=== PATIENT | female | born 1985 | race Caucasian/White ===

== ENCOUNTER 2017-06-28 00:51 | Inpatient (IN) | payer BC ==
[2017-06-28] VITALS (29 sets, daily range): BP systolic 128–153; BP diastolic 61–94; PULSE 82–110; TEMP 97.6–98.6
[~2017-06-28] VITALS: Ht 152.4 cm; Wt 99.1 kg
[~2017-06-28 00:51] MED LIST: ASPIRIN 81M81 MG/TA2 PO; B6-FOLIC ACID1 CAP PO; FOLGARD RX 1 MG1 TAB PO; FOLGARD RX 2.21 TAB PO; LEVEMIR100 U/ML SQ; METHERGINE0.2 MG/TAB PO; MOTRIN 600600 MG/TAB PO; PERCOCET 325 MG1 TA2 PO; PRENATAL1 TA3 PO; PROGESTERONE50 MG/ML IM; PROMETRIUM200 MG PO
[2017-06-28 02:31] LABS: BASO % 0.3 % (0.0-2.0); EOS # 0.1 (0.0-0.7); EOS % 0.5 % (0-4.0); GRAN # 6.1 (1.4-6.5); HEMOGLOBIN 10.5 g/dl (12.5-16.0); LYMPH # 2.5 (1.2-3.4); LYMPH % 25.9 % (20.0-51.0); MEAN CELL VOLUME 85 fl (80.0-100.0); MEAN CORPUSCULAR HEMOGLOBIN 27 pg (27.0-31.0); MEAN CORPUSCULAR HGB CONC 31 g/dl (33.0-37.0); MEAN PLATELET VOLUME 10.4 fl (7.4-10.4); MONO # 0.8 (0.1-0.6); MONO % 8.4 % (1.7-9.3); PLATELET COUNT 256 K/mm3 (130-400); RED BLOOD COUNT 3.95 M/mm3 (4.10-5.30); REDCELL DISTRIBUTION WIDTH-CV 15.1 % (11.5-14.5)
[2017-06-28 02:32] LABS: HEMATOCRIT 33.4 % (37.0-47.0)
[2017-06-28 03:24] LABS: ALBUMIN 2.8 gm/dL (3.5-5.0); BILIRUBIN,TOTAL 0.4 mg/dL (0.0-1.0); CALCIUM 9.7 mg/dL (8.4-10.2); CREATININE, serum 0.47 mg/dL (0.52-1.25); POTASSIUM 3.9 mmol/L (3.4-5.0); TOTAL PROTEIN 6.1 gm/dL (6.4-8.2)
[2017-06-29 06:30] VITALS: BP 120/80; PULSE 80; TEMP 98.2
[2017-06-29 20:00] VITALS: BP 141/84; PULSE 97; TEMP 98.6
[2017-06-30] MEDS ORDERED: IBU800 M1 PO (08:59)
[2017-06-30] MEDS ORDERED: PERCOCET 325 MG1 TA2 PO (08:59)
[2017-06-30] MEDS ORDERED: PROCARDIA XL 6060 MG PO (08:59)
[2017-06-30 09:00] VITALS: BP 140/90; PULSE 88; TEMP 98.8
== END 2017-06-30 14:55 | disposition home or self-care (01) | DRG 775 ==
LOC: LDRO 00:51 → LDR 01:40 → OB 01:40
PROVIDERS: Student in an Organized Health Care Education/Training Program
PROC: 10E0XZZ Delivery of Products of Conception, External Approach (ICD-10-PCS; principal; 2017-06-28)
PROC: 0KQM0ZZ Repair Perineum Muscle, Open Approach (ICD-10-PCS; 2017-06-28)
DX: O99.284 Endocrine, nutritional and metabolic diseases complicating childbirth (principal); E72.12 Methylenetetrahydrofolate reductase deficiency; Z3A.38 38 weeks gestation of pregnancy; Z37.0 Single live birth; O70.1 Second degree perineal laceration during delivery; O13.4 Gestational [pregnancy-induced] hypertension without significant proteinuria, complicating childbirth
CPT/HCPCS: J2590; J2795; J7120

== ENCOUNTER 2020-10-19 03:44 | Inpatient (IN) | payer BC ==
[2020-10-19] VITALS (14 sets, daily range): BP systolic 131–173; BP diastolic 75–102; PULSE 78–99; TEMP 97.5–98.9
[~2020-10-19] VITALS: Ht 162.6 cm; Wt 97.3 kg
[~2020-10-19 03:44] MED LIST changes: +IBU800 M1 PO; +PROCARDIA XL 6060 MG PO
--- NOTE | 2020-10-19 03:50 | NUR ---
PT ARRIVES VIA WHEELCHAIR TO UNIT C/O CONTRACTIONS, WORSENING IN PAIN SINCE 0130. DENIES BREAKING OF WATER BUT STATES "I JUST FEEL LIKE MY WATER IS ABOUT TO BREAK." PT UNABLE TO BREATHE THROUGH CONTRACTIONS. PLACED ON EFM/TOCO. CATEGORY 1 STRIP. CONTRACTIONS FIRM AND PALPATED Q1.5-2MIN. INITIAL SVE AT 0400 PT IS AN ANTERIOR LIP WITH A BULGY BAG. 0401: PT BEGINS STATING "I FEEL LIKE I NEED TO PUSH." UPDATED AND STATES HE IS ON HIS WAY. INT PLACED TO RIGHT FA. LR INFUSING. PT ENCOURAGED AND COACHED TO DEEP BREATHE THROUGH THE PAIN UNTIL PHYSICIAN IS PRESENT. 0412: SROM WITH CLEAR FLUID NOTED, PT STATING "I HAVE TO PUSH", PT ENCOURAGED TO CONTINUE TO BREATH AND ENSURED THAT THE PHYSICIAN IS ALMOST PRESENT. 0412: ARRIVES AT BEDSIDE, PT BEGINS TO PUSH. 0419: OF VIABLE FEMALE . PLACED ON MATERNAL ABDOMEN. CARE ASSUMED BY YAS Marie RN. CORD CLAMPED X2 AND CUT BY FOB. 0423: OF PLACENTA. TRUE KNOT X1 FOUND UPON DELIVERY BY . PITOCIN INFUSING PER PROTOCOL. FUNDUS REMAINS FIRM AT UMBILICUS. LOCHIA WNL WITH NO MAJOR CLOTTING. BEGINS REPAIR OF 2ND DEGREE PERINEAL LACERATION. WILL CONTINUE RECOVERY PER PROTOCOL.
--- NOTE | 2020-10-19 07:20 | NUR ---
Assisted out of bed for first time post delivery. Steady gait noted. Denies any lightheadedness/dizziness/nausea. Able to spontaneously void. Darcie care/teaching provided. New gown, mesh underwear, darcie pad, ice pack provided. Transferred to 765 @ 1090.
[2020-10-19 07:28] LABS: BASO % 0.4 % (0.0-2.0); EOS % 0.4 % (0-4.0); GRAN # 7.8 (1.4-6.5); HEMATOCRIT 37.4 % (37.0-47.0); HEMOGLOBIN 11.8 g/dl (12.5-16.0); LYMPH # 2.1 (1.2-3.4); LYMPH % 19.7 % (20.0-51.0); MEAN CELL VOLUME 90 fl (80.0-100.0); MEAN CORPUSCULAR HEMOGLOBIN 28 pg (27.0-31.0); MEAN CORPUSCULAR HGB CONC 32 g/dl (33.0-37.0); MEAN PLATELET VOLUME 10.4 fl (7.4-10.4); MONO # 0.8 (0.1-0.6); PLATELET COUNT 243 K/mm3 (130-400); RED BLOOD COUNT 4.16 M/mm3 (4.10-5.30); REDCELL DISTRIBUTION WIDTH-CV 13.6 % (11.5-14.5)
--- NOTE | 2020-10-19 07:50 | NUR ---
Rates pain "5" of 10 in perineum. Requests stronger pain medication.
--- NOTE | 2020-10-19 08:55 | NUR ---
Switched to large BP cuff, but BP still mildly elevated. Will notify .
--- NOTE | 2020-10-19 09:00 | NUR ---
here for am rounds.
--- NOTE | 2020-10-19 09:11 | NUR ---
Initial visit; Patient thanked Trumpet Teacher for offering congratulations and God's blessings for the of her daughter. Trumpet Teacher thanked patient for choosing [facility].
[2020-10-19] MEDS ORDERED: VITAMIN B-6100 MG (23:05)
[2020-10-19] MEDS ORDERED: ASPIRIN 81M81 MG/TA2 PO (23:06)
[2020-10-19] MEDS ORDERED: CLARITIN 1010 MG/TAB PO (23:06)
--- NOTE | 2020-10-19 23:45 | NUR ---
PT'S BP 173/102. PER ADMINISTER 30MG PROCARDIA XL TONIGHT NOW, THEN CONTINUE WTIH QDAILY SCHEDULE IN THE MORNING. PT AGREEABLE TO POC.
[2020-10-20 04:30] VITALS: BP 161/91; PULSE 101; TEMP 97.9
[2020-10-20 07:45] VITALS: BP 132/80; PULSE 85; TEMP 98.1
--- NOTE | 2020-10-20 08:00 | NUR ---
Rests in bed, alert. Request pain medication. Tylenol 1000 mg given per request and as ordered.
--- NOTE | 2020-10-20 09:28 | NUR ---
Follow-up visit; Patient thanked Thimble Press Operator for stopping by again this morning and offering God's blessings.
--- NOTE | 2020-10-20 10:00 | NUR ---
Procardia 30 mg given late because of not having any up in the pyxis. Notified pharmacy at 0900.
--- NOTE | 2020-10-20 13:25 | NUR ---
Rests in bed, alert. Oxycodone 5 mg given per request and as ordered.
[2020-10-20 17:30] VITALS: BP 140/81; PULSE 85; TEMP 98.7
--- NOTE | 2020-10-20 17:37 | NUR ---
Rests in bed, alert. Ibuprofen 600 mg given as ordered.
[2020-10-20 20:10] VITALS: BP 145/82; PULSE 89; TEMP 98
[2020-10-21] MEDS ORDERED: ADALAT CC30 MG PO (08:27)
[2020-10-21] MEDS ORDERED: IBU600 MG PO (08:27)
[2020-10-21] MEDS ORDERED: ROXICODONE 55 MG/TAB PO (08:28)
[2020-10-21 08:30] VITALS: BP 138/91; PULSE 76; TEMP 98.1
== END 2020-10-21 14:00 | disposition home or self-care (01) | DRG 806 ==
LOC: LDRO 03:44 → OB 04:00 → LDR 04:00 → OB 07:30
PROVIDERS: Obstetrics & Gynecology; ADMIT Obstetrics & Gynecology
PROC: 10E0XZZ Delivery of Products of Conception, External Approach (ICD-10-PCS; principal; 2020-10-19)
PROC: 0KQM0ZZ Repair Perineum Muscle, Open Approach (ICD-10-PCS; 2020-10-19)
DX: O99.284 Endocrine, nutritional and metabolic diseases complicating childbirth (principal); E72.12 Methylenetetrahydrofolate reductase deficiency; Z37.0 Single live birth; O99.824 Streptococcus B carrier state complicating childbirth; O69.2XX0 Labor and delivery complicated by other cord entanglement, with compression, not applicable or unspecified; O70.1 Second degree perineal laceration during delivery; Z3A.37 37 weeks gestation of pregnancy
CPT/HCPCS: J2590; J7120

== ENCOUNTER 2023-03-06 07:51 | Day surgery (SDC) | payer OTHER ==
[~2023-03-06] VITALS: Ht 162.6 cm; Wt 89.5 kg
[~2023-03-06 07:51] MED LIST changes: +ADALAT CC30 MG PO; +CLARITIN 1010 MG/TAB PO; +IBU600 MG PO; +ROXICODONE 55 MG/TAB PO; +VITAMIN B-6100 MG
[2023-03-06 08:44] LABS: BASO % 0.6 % (0.0-2.0); EOS # 0.1 K/mm3 (0.0-0.7); EOS % 1.1 % (0.0-4.0); GRAN # 4.1 K/mm3 (1.4-6.5); GRAN % 63.8 % (42.2-75.2); HEMATOCRIT 38.9 % (37.0-47.0); HEMOGLOBIN 13.8 g/dl (12.5-16.0); LYMPH # 1.8 K/mm3 (1.2-3.4); MEAN CELL VOLUME 86 fl (80.0-100.0); MEAN CORPUSCULAR HEMOGLOBIN 30 pg (27-31); MEAN CORPUSCULAR HGB CONC 36 g/dl (33.0-37.0); MEAN PLATELET VOLUME 9.3 fl (7.4-10.4); MONO # 0.4 K/mm3 (0.1-0.6); MONO % 6.2 % (1.7-9.3); RED BLOOD COUNT 4.55 M/mm3 (4.10-5.30); REDCELL DISTRIBUTION WIDTH-CV 12.7 % (11.5-14.5)
[2023-03-06 09:11] LABS: PLATELET COUNT 259 K/mm3 (130-400)
[2023-03-06] MEDS ORDERED: NS 1,000 ML IV ONE (10:00)
[2023-03-06] MEDS ORDERED: Methylergonovine 0.2 MG/ML 1 ML AMPUL IV ONE (10:00)
[2023-03-06] MEDS ORDERED: Ondansetron 4 MG/2 ML VIAL IV PRN ×3 (10:30→11:45)
[2023-03-06 10:31] LABS: BASO # 0.1 K/mm3 (0.0-0.2); BASO % 0.6 % (0.0-2.0); EOS % 0.4 % (0.0-4.0); GRAN % 72.3 % (42.2-75.2); HEMATOCRIT 40.2 % (37.0-47.0); HEMOGLOBIN 13.7 g/dl (12.5-16.0); LYMPH # 2.1 K/mm3 (1.2-3.4); LYMPH % 21.2 % (20.0-51.0); MEAN CELL VOLUME 88 fl (80.0-100.0); MEAN CORPUSCULAR HEMOGLOBIN 30 pg (27-31); MEAN CORPUSCULAR HGB CONC 34 g/dl (33.0-37.0); MEAN PLATELET VOLUME 9.2 fl (7.4-10.4); MONO # 0.5 K/mm3 (0.1-0.6); MONO % 5.1 % (1.7-9.3); PLATELET COUNT 354 K/mm3 (130-400); RED BLOOD COUNT 4.55 M/mm3 (4.10-5.30); REDCELL DISTRIBUTION WIDTH-CV 12.7 % (11.5-14.5)
--- NOTE | 2023-03-06 10:52 | NUR ---
habilitation worker was consulted due to patient having a miscarriage in the ER. JASSI contacted [facility] regarding any services provided to patient's that have a miscarriage. [facility] provides a free of charge cremation for family's that have miscarriages. JASSI contacted [facility] to determine if they have any services for family's that have miscarriages. Ryan at the home expressed they did not have any and were not familiar with any supports in this area. JASSI met with patient's , Manuel, and provided information for the local homes. Manuel expressed [facility] and left a voicemail. JASSI also provided the resources in the area for mental health services. JASSI obtained Manuel's number, P# [phone], and contacted [facility] to ensure they called him back. [facility] expressed they would call him back soon. JASSI notified [place], Flatbed Truck Driver, of the above information. JASSI met with patient and her , Manuel, to determine if [facility] called them back. Manuel expressed they had tried but were unable to speak at that time but he would call them back. JASSI asked if there were any other family members that they would like the health care social worker to contact and see if they could watch their other child while they were in the hospital. Patient and expressed they were okay and did not wish for family to be contacted. JASSI also discussed the option for a double needle operator lockstitch to come in and meet with them. Manuel expressed at this time they did not want the double needle operator lockstitch to come visit them. Manuel expressed [facility] was calling him back, JASSI stepped out. JASSI met with loader malt house and notified her of the information above. cnc supervisor will follow up with the patient and her 's choice of home.
[2023-03-06] MEDS ORDERED: Ondansetron 4 MG/2 ML VIAL ONE (11:03)
[2023-03-06] MEDS ORDERED: fentaNYL 50 MCG/ML 2 ML VIAL ONE (11:03)
[2023-03-06] MEDS ORDERED: Lidocaine PF 2% (20 MG/ML) 5 ML VIAL ONE (11:04)
[2023-03-06 11:30] VITALS: BP 136/92; PULSE 107; TEMP 97.3
[2023-03-06 11:45] VITALS: BP 120/73; PULSE 73
[2023-03-06] MEDS ORDERED: Morphine 4 MG/ML VIAL IV PRN (11:45)
[2023-03-06] MEDS ORDERED: Acetaminophen 500 MG TAB PO SCH (11:45)
[2023-03-06] MEDS ORDERED: Meperidine 50 MG/ML 1 ML VIAL IV PRN (11:45)
[2023-03-06] MEDS ORDERED: LR 1,000 ML IV SCH (11:45)
[2023-03-06] MEDS ORDERED: fentaNYL 50 MCG/ML 2 ML VIAL IV PRN (11:45)
[2023-03-06] MEDS ORDERED: oxyCODONE 5 MG TAB PO PRN (11:45)
[2023-03-06] MEDS ORDERED: Naloxone 0.4 MG/ML VIAL IV PRN (11:45)
[2023-03-06 12:00] VITALS: BP 117/75; PULSE 69
[2023-03-06 12:15] VITALS: BP 127/68; PULSE 69
[2023-03-06 12:45] VITALS: BP 112/62; PULSE 74
[2023-03-06] MEDS ORDERED: Ibuprofen 600 MG TAB PO SCH ×2 (12:45→17:35)
--- NOTE | 2023-03-06 16:34 | NUR ---
[id number]: PT TO [facility]ERY [facility] 8 FROM OR S/P D&C A&O, PLACED ON MONITOR, VSS ON RA RECEIVED REPORT AND ASSUMED CARE OF PT FROM [facility] [facility], DENIES SIGNIFICANT COMPLAINT, REPORTS TRANSIENT TOLERABLE CRAMPING, TEARFUL. SPOUSE HAS LEFT HOSPITAL FOR BRIEF TIME, BUT BACK TO PT'S BED PROVIDED WARM BLANKETS, FOOD/FLUIDS, TOLERATING WELL T/C TO DR NELSON FOR DC ORDERS - TORB TO DC HOME ON ALL HOME MEDS, HOME IBUPROFEN FOR PAIN, 2 WEEK F/U. C/O INCREASING AND MOD-SEVERE LOWER ABDOMINAL PAIN/CRAMPING - 50 IV FENTANYL AND 600 PO MOTRIN FOR SAME @ 1240, WHICH WAS REPORTEDLY VERY HELPFUL AND WELL TOLERATED (VSS ON RA, REMAINS A&O). C/O TRANSIENT NAUSEA, PALLIATED WITH TIME, SODA, SALTINES. PT A&O, NAD, VSS ON RA, TOLERATING PO, IS WITHOUT SIGNIFICANT COMPLAINT, WITH STEADY GAIT, VOIDED BY END OF STAY. IV D/C'D. D/C INSTRUCTIONS, NEED TO CALL OFFICE TO SCHEDULE 2 WEEK F/U REVIEWED WITH PT. MISCARRIAGE BEREAVEMENT KIT AND PERIPADS PROVIDED. ALL QUESTIONS AND CONCERNS ADDRESSED TO PT SATISFACTION. TAKEN TO EXIT VIA W/C WITH ALL BELONGINGS AND PAPERWORK IN HAND, ASSISTED INTO PASSENGER SEAT OF POV. SPOUSE TO DRIVE HOME.
[2023-03-06] MEDS ORDERED: Docusate Sodium 100 MG CAP PO SCH (21:00)
== END 2023-03-06 13:35 | disposition home or self-care (01) ==
LOC: COL.ER 07:51 → SDCO 11:26
PROVIDERS: Personal Emergency Response Attendant
DX: O03.4 Incomplete spontaneous abortion without complication (principal)
CPT/HCPCS: J0690; J2210; J2405; J2704; J3010; J7030

== ENCOUNTER 2023-12-06 05:27 | Day surgery (SDC) | payer OTHER ==
[~2023-12-06] VITALS: Ht 162.6 cm; Wt 93.3 kg
[~2023-12-06 05:27] MED LIST changes: +LR 1,000 ML IV SCH
[2023-12-06 05:49] VITALS: BP 140/101; PULSE 100; TEMP 97.2
[2023-12-06] MEDS ORDERED: diazePAM 5 MG TAB PO SCH (06:00)
[2023-12-06] MEDS ORDERED: LR 1,000 ML IV SCH ×2 (06:00→08:30)
[2023-12-06] MEDS ORDERED: Scopolamine 1 MG Delivered 3-Day PATCH TD SCH (06:00)
[2023-12-06] MEDS ORDERED: Metoclopramide 10 MG TAB PO SCH (06:00)
[2023-12-06] MEDS ORDERED: Famotidine 20 MG TAB PO SCH (06:00)
--- NOTE | 2023-12-06 06:15 | NUR ---
The patient ambulated back to [place] [facility] independently using a steady gait and appeared to tolerate the activity well. Vital signs obtained. Consent signed. 18G IV started in left hand with one stick, LR infusing without difficulty. Assessment completed. Home medications reconcilled. , Manuel, at bedside. Warm blanket provided. Denies any further needs at this time.
[2023-12-06] MEDS ORDERED: fentaNYL 50 MCG/ML 2 ML VIAL ONE (07:03)
[2023-12-06] MEDS ORDERED: Succinylcholine PF 200 MG/10 ML SYRINGE IV ONE (07:03)
[2023-12-06] MEDS ORDERED: dexAMETHasone 10 MG/ML VIAL ONE (07:47)
[2023-12-06] MEDS ORDERED: Ketorolac 30 MG/ML VIAL ONE (07:56)
[2023-12-06] MEDS ORDERED: Ondansetron 4 MG/2 ML VIAL ONE ×2 (07:56→08:18)
[2023-12-06] MEDS ORDERED: Ondansetron 4 MG/2 ML VIAL IV PRN (08:30)
[2023-12-06] MEDS ORDERED: HYDROmorphone 1 MG/1 ML SYRINGE [PACU/SDC ONLY] IV PRN (08:30)
[2023-12-06] MEDS ORDERED: Morphine 4 MG/ML VIAL IV PRN (08:30)
[2023-12-06] MEDS ORDERED: Acetaminophen 500 MG TAB PO SCH (08:30)
[2023-12-06] MEDS ORDERED: Naloxone 0.4 MG/ML VIAL IV PRN (08:30)
[2023-12-06] MEDS ORDERED: oxyCODONE 5 MG TAB PO PRN (08:30)
[2023-12-06] MEDS ORDERED: droPERidol 2.5 MG/ML 2 ML VIAL IV PRN (08:30)
[2023-12-06] MEDS ORDERED: fentaNYL 50 MCG/ML 1 ML SYRINGE/VIAL [PACU/SDC ONLY] IV PRN (08:30)
[2023-12-06] MEDS ORDERED: Docusate Sodium 100 MG CAP PO SCH (09:00)
[2023-12-06 09:05] VITALS: BP 133/74; PULSE 77; TEMP 97.1
--- NOTE | 2023-12-06 09:05 | NUR ---
The patient arrived back to [place] [facility] from the recovery room at this time. The patient appears alert and oriented and denies any nausea at this time. The patient does report that her pain is starting to increase so she agreed to try some applesauce, muffin and juice so she can take some oral pain medication. Post operative vital signs were started at this time. was brought back to be at her bedside. Denies any further needs at this time.
[2023-12-06 09:20] VITALS: BP 140/77; PULSE 76
--- NOTE | 2023-12-06 09:20 | NUR ---
The patient appears to be tolerating the food and drink well. The patient was given a PRN dose of roxicodone and her scheduled dose of Tylenol. Vital signs appear stable.
[2023-12-06 09:35] VITALS: BP 121/72; PULSE 87
--- NOTE | 2023-12-06 09:35 | NUR ---
The patient has finished her food and appeared to tolerate it well. The patient states that her pain is "getting better". remains at bedside.
[2023-12-06 09:55] VITALS: BP 127/65; PULSE 80
--- NOTE | 2023-12-06 09:55 | NUR ---
Discharge instructionsn were reviewed with the patient and her at this time. They both verbalized understanding and have no quetions for the nurse at this time. The patient's IV and INT sites were removed and a pressure dressing was applied to each site. The nurse instructed the patient to get dressed and notify the staff when she is ready to be escorted out.
--- NOTE | 2023-12-06 10:15 | NUR ---
The patient was escorted out via wheelchair to a private vehicle by colleen Gonzalez. The patient's belongings and dishcarge paperwork were sent with her. The patient's , Manuel, is present to drive her home.
[2023-12-06] MEDS ORDERED: Ibuprofen 600 MG TAB PO SCH (14:23)
== END 2023-12-06 10:15 | disposition home or self-care (01) ==
LOC: SDCO 05:27
DX: O03.39 Incomplete spontaneous abortion with other complications (principal); E66.9 Obesity, unspecified; Z68.35 Body mass index [BMI] 35.0-35.9, adult
CPT/HCPCS: J1100; J1885; J2405; J2704; J3010; J7120